=== PATIENT | male | born 1985 | race African-American/Black ===

== ENCOUNTER 2017-01-24 11:46 | Emergency (ER) | payer MEDICARE, OTHER ==
[~2017-01-24] VITALS: Ht 188 cm; Wt 72.6 kg
[2017-01-24 11:55] VITALS: BP 124/61
--- NOTE | 2017-01-24 12:02 | EKG ---
[address] [address] Test Date: 2017-01-24 Test Time: 11:58:28 Pat Name: TAHMINA MAYEN Department: Room: Gender: M Social Studies Teacher: BATSHEVA : 1985 Requested By: ALISHA NOBLES Order Number: [id number] Reading MD: Measurements Intervals [place] Rate: 96 P: 65 TN: 188 QRS: 75 QRSD: 96 T: 34 QT: 344 QTc: 441 Interpretive Statements SINUS RHYTHM NO SPECIFIC ECG ABNORMALITIES RI6.01 Unconfirmed report No previous ECG available for comparison
--- NOTE | 2017-01-24 12:06 | PHYS DOC ---
General Chief Complaint: CHEST PAIN Stated Complaint: CHEST PAIN Time Seen by MD: 11:55 Source: patient Exam Limitations: no limitations Problems: History of Present Illness Initial Comments Patient is a 31-year-old male who comes to the ED complaining of chest pain. Patient reveals that he has history of sickle cell anemia, he thinks he is currently an crisis. He first noticed discomfort when it awoke him last night approximately 11:30 PM. He describes anterior chest pain with some shortness of breath: Sweats and nausea no arm or neck symptoms. Patient also has pain at his hips knees and shoulders, he says these symptoms are consistent with prior sickle cell crisis exacerbations. ED vitals: 93, 20, pulse 124/75, 99% room air Timing/Duration: other (1130 pm yesterday) Severity: severe Modifying Factors: improves with medication Associated Symptoms: chest pain, diaphoresis, nausea/vomiting, shortness of breath, other Allergies: Coded Allergies: levofloxacin (Verified Allergy, Severe, Anaphylaxis, 01/24/17) hydromorphone (Verified Allergy, Intermediate, Itching, 01/24/17) Past Medical History Medical History: other (sickle cell anemia) Review of Systems Constitutional: denies chills, denies diaphoresis, denies fever, denies malaise EENTM: denies ear pain, denies nose pain, denies throat pain, denies mouth pain Respiratory: denies cough, denies shortness of breath, denies wheezing Cardiovascular: see HPI, denies edema, denies palpitations, denies syncope Gastrointestinal: denies abdominal pain, denies diarrhea, denies nausea, denies vomiting Genitourinary: denies dysuria, denies frequency, denies hematuria Musculoskeletal: see HPI Psychiatric/Neurological: headache, denies numbness, denies paresthesia, denies tingling, denies weakness Hematologic/Lymphatic: see HPI Physical Exam General Appearance: WD/WN, no apparent distress Eyes: bilateral eye normal inspection, bilateral eye PERRL, bilateral eye EOMI Ear, Nose, Throat: hearing grossly normal, normal ENT inspection, normal pharynx Neck: non-tender, supple Respiratory: normal breath sounds, no respiratory distress Cardiovascular: normal peripheral pulses, regular rate, rhythm, no edema Gastrointestinal: normal bowel sounds, non tender, soft, no organomegaly Back: no CVA tenderness, no vertebral tenderness Extremities: normal range of motion, non-tender, normal inspection, no calf tenderness, pelvis stable Neurologic/Psychiatric: deblocker II-XII nml as tested, no motor/sensory deficits, alert, oriented x 3 Skin: normal color, warm/dry Orders, Labs, Meds EKG: Normal sinus rhythm 96 bpm, there is ST elevation versus J-point elevation in the anterior leads no reciprocal changes. Will discuss with on-call cardiology now, interpreted by Dr. Nobles. 1202: I requested on-call cardiology be paged to evaluate patient's EKG. 1213: I discussed the patient with Dr. Ford, he is evaluating EKG. 12:30: Dr. Ford feels it is likely J-point elevation, requests repeat study in 15 minutes and await hemoglobin. Repeat EKG 15 minutes after the initial was unchanged. PATIENT: TAHMINA MAYEN ACCOUNT: [id number] : 1985 LOCATION: ER AGE: 31 SEX: M EXAM STATUS: REG ER ORD. PHYSICIAN: ALISHA NOBLES DO REASON: cp PROCEDURE: PORTABLE CHEST 1V Single view of the Chest 01/24/2017 1:55 PM Indication: Chest pain Comparison: None Findings: There is no focal consolidation or infiltrate identified. There is no effusion or pneumothorax. The cardiomediastinal silhouette and pulmonary vasculature are within normal limits. No osseous abnormality is identified. Impression: No evidence of acute cardiopulmonary process. DICTATED AND SIGNED BY: LAKIA BOWER MD DATE: 01/24/17 1221 CC: NON,STAFF; ALISHA NOBLES DO ~ 1348: Time in department 2 hours two minutes, patient will have prolonged ED course due to lab delay as he has just now submitted a urine for analysis. 1507: Negative workup in the emergency department. Patient has received 3 doses of 50 g fentanyl intravenously by 15 minutes, 2 doses of morphine 4 mg IV by 15 minutes patient states none of the interventions have touched his pain. He has been observed to listen to his headphones face timing and watching videos on his eye pad without any apparent discomfort and with normal vital signs. I discussed the patient with on-call hospitalist Dr. Anderson, he feels and I'm in agreement that the patient would be best suited at a facility where the patient is known and his respiratory medicine physician may participate in his care. I discussed this with the patient and he is agreeable. 1508: I discussed the patient in detail with triage nurse. She is going to contact the patient's respiratory medicine physician or on-call underwriting sales representative and call back shortly. 1531: I received a call back from transfer on-call respiratory medicine physician Dr. Diane. He and I discussed the patient for approximately 20 minutes. He went through the patient's chart at , and I discussed with him the patient's relayed history, presentation, emergency Department findings and ED course. After thorough discussion Dr Diane recommends a trial of outpatient conservative care. Recommends discharge home with Percocet analgesia, rest and oral hydration. He recommends stressing to the patient that with any future symptoms relating to his sickle cell disease the patient needs to present to the emergency department. He says in this way doctor shopping and narcotic prescriptions from multiple providers can be avoided and potential discharge from the clinic avoided as well. I discussed this with the patient. I discussed signs and symptoms to monitor as well as urgent indications to return and follow-up at . Patient's questions were answered to his satisfaction and he expressed agreement and understanding with the treatment plan. Departure Time of Disposition: 15:49 Disposition: 01 HOME, SELF-CARE Diagnosis: sickle cell disease, pain control Condition: STABLE Patient Instructions: Sickle Cell Pain Crisis, [id number] Additional Instructions: Off work through January 29, note given. Rest, no strenuous activity. Aggressive hydration with Gatorade or water. No driving or operating machinery while under the influence of sedative medications. Prescription: Percocet 10 mg quantity 20 take as directed with food for severe breakthrough pain. [id number]-[id number] stool softeners to prevent constipation. As discussed per your hematologists when you run into problems with sickle cell pain in the future they request that you go to the emergency department at . Return to ED as needed ALISHA NOBLES DO Jan 24, 2017 12:06
--- NOTE | 2017-01-24 12:24 | RAD ---
Single view of the Chest 01/24/2017 1:55 PM Indication: Chest pain Comparison: None Findings: There is no focal consolidation or infiltrate identified. There is no effusion or pneumothorax. The cardiomediastinal silhouette and pulmonary vasculature are within normal limits. No osseous abnormality is identified. Impression: No evidence of acute cardiopulmonary process.
[2017-01-24] MEDS ORDERED: IV NORMAL SALINE 1,000ML 1,000 ML IV SCH (12:30)
[2017-01-24 12:47] LABS: HEMATOCRIT 32.2 % (39.0-53.0); HEMOGLOBIN 11.1 g/dL (13.0-17.5); MEAN CORPUSCULAR HEMOGLOBIN 38 pg (25-35); MEAN CORPUSCULAR HGB CONC 35 g/dL (31-37); MEAN CORPUSCULAR VOLUME 110 fL (79-100); PLATELET COUNT 298 x10^3/uL (140-400); RED BLOOD COUNT 2.97 x10^6/uL (4.30-5.70)
[2017-01-24 13:07] LABS: ALBUMIN 4.2 g/dL (3.4-5.0); ALBUMIN/GLOBULIN RATIO 1.4 (1.0-1.7); CALCIUM 8.9 mg/dL (8.5-10.1); CREATININE 0.8 mg/dL (0.7-1.3); GFR 137.3; POTASSIUM 3.9 mmol/L (3.5-5.1); TOTAL BILIRUBIN 0.5 mg/dL (0.2-1.0); TOTAL PROTEIN 7.1 g/dL (6.4-8.2)
[2017-01-24 13:37] LABS: % LYMPHS 51 % (24-48); % MONOS 15 % (0-10); % SEGS 30 % (35-66); NUCLEATED RBC 9; PLT ESTIMATE ADEQUATE (ADEQUATE); POLYCHROMASIA SLIGHT
[2017-01-24 13:39] LABS: ANISOCYTOSIS MOD; OVALOCYTES OCC; TARGET CELLS MOD
[2017-01-24 13:40] LABS: SCHISTOCYTES OCC; SICKLE CELLS OCC; SPHEROCYTES OCC
[2017-01-24] MEDS ORDERED: ONDANSETRON PF 4 MG/2 ML VIAL. IV ONE (13:40)
[2017-01-24 13:42] LABS: POIKILOCYTOSIS MOD
[2017-01-24 14:12] LABS: BILIRUBIN,URINE NEG (NEG); CLARITY,URINE CLEAR; COLOR,URINE YELLOW; GLUCOSE,URINE NEG (NEG); NITRITE,URINE NEG (NEG); UROBILINOGEN,URINE 0.2 mg/dL (0.2 mg/dL)
[2017-01-24 14:13] LABS: BACTERIA,URINE 0 /HPF (0-FEW); RBC,URINE 0 /HPF (0-2); SQUAMOUS EPITHELIAL CELL,UR OCC /LPF; WBC,URINE 0 /HPF (0-4)
[2017-01-24] MEDS: MORPHINE SULFATE 4 MG/ML DISP.SYRIN. IV/SQ PRN ×2 (14:15→14:42)
[2017-01-24 14:16] LABS: AMPHETAMINE/METHAMPHETAMINE NEG (NEG); BARBITURATES NEG (NEG); BENZODIAZEPINES NEG (NEG); CANNABINOIDS NEG (NEG); COCAINE NEG (NEG); METHADONE NEG (NEG); OPIATES NEG (NEG); PHENCYCLIDINE NEG (NEG)
[2017-01-24] MEDS ORDERED: IV NORMAL SALINE 1,000ML 1,000 ML IV ONE (14:45)
--- NOTE | 2017-01-24 14:54 | EKG ---
[address] [address] Test Date: 2017-01-24 Test Time: 12:37:26 Pat Name: TAHMINA MAYEN Department: Room: Gender: M [employer] Salesperson: BATSHEVA : 1985 Requested By: ALISHA NOBLES Order Number: [id number] Reading MD: Measurements Intervals [place] Rate: 79 P: 50 [place]: 190 QRS: 67 QRSD: 100 T: 28 QT: 366 QTc: 426 Interpretive Statements SINUS RHYTHM NO SPECIFIC ECG ABNORMALITIES RI6.01 Unconfirmed report No previous ECG available for comparison
[2017-01-24] MEDS ORDERED: OXYC-328 PO (15:49)
== END 2017-01-24 16:05 | disposition home or self-care (01) ==
LOC: ER 11:46
DX: D57.1 Sickle-cell disease without crisis (principal); Z88.5 Allergy status to narcotic agent; Z88.1 Allergy status to other antibiotic agents
CPT/HCPCS: 36415; 71010; 80053; 80307; 81001; 82550; 83605; 83615; 83880; 84484; 85007; 85025; 85045; 86140; 87040; 93005; 96361; 96374; 96375; 96376; 99285; J2270; J2405; J3010; G0479; J7030